=== PATIENT | female | born 1935 | race Caucasian/White ===

== ENCOUNTER → 2017-10-22 | Outpatient (CLI) | payer MEDICARE, OTHER ==
[~2017-10-22] MED LIST: ASPI-630 PO; MULT-245 PO; RIVA15TA PO; RIVA20TA2 PO; SIMV20TA PO; VIT1TABL32 PO
--- NOTE | 2017-10-22 22:28 | RAD ---
Chest radiograph 10/22/2017 4:23 PM INDICATION: Chest pain for one week COMPARISON: Chest radiograph June 07, 2007 TECHNIQUE: Frontal and lateral views of the chest are provided. FINDINGS: The cardiomediastinal silhouette is within normal limits. There are no pleural effusions. There is no pulmonary vascular congestion. There is no pneumothorax. The lungs are clear. Mild dextroconvex scoliosis of the thoracic spine. IMPRESSION: No acute cardiopulmonary process. Electronically signed by: Hien Aiken MD (10/22/2017 4:42 PM) [facility]
== END | disposition home or self-care (01) ==
LOC: RAD 16:12
PROVIDERS: ATTEND Family Medicine
DX: M41.84 Other forms of scoliosis, thoracic region (principal); I10 Essential (primary) hypertension; E11.9 Type 2 diabetes mellitus without complications
CPT/HCPCS: 71046

== ENCOUNTER → 2021-06-09 | Outpatient (CLI) | payer MEDICARE ==
--- NOTE | 2021-06-09 10:57 | RAD ---
EXAM: XR HIP_LT 2-3 VIEWS 06/09/2021 10:40 AM CLINICAL INDICATION: Left hip pain for several days, unknown injury. COMPARISON: None TECHNIQUE: AP and frog-leg lateral view of the left hip FINDINGS: There is no acute fracture. Mild left hip joint space narrowing with tiny osteophytes. The pubic symphysis is normal. There is suture material in the pelvis. IMPRESSION: No acute osseous abnormality. Mild left hip degenerative joint disease. Electronically signed by: Jacquelin Yung MD (06/09/2021 10:54 AM) [id number]
== END ==
LOC: RAD 10:25
PROVIDERS: ATTEND Specialist
DX: M16.12 Unilateral primary osteoarthritis, left hip (principal); M25.752 Osteophyte, left hip
CPT/HCPCS: 73502

== ENCOUNTER 2021-06-27 22:23 | Emergency (ER) | payer MEDICARE ==
[~2021-06-27] VITALS: Ht 167.6 cm; Wt 75.0 kg
--- NOTE | 2021-06-27 22:41 | PHYS DOC ---
Past History Past Medical History: Diabetes (JAY JAMES MD) Past Surgical History hx. colon resection (JAY JAMES MD) General Adult HPI: HPI: ".. I had a CT earlier.. Dr Wilder felt maybe I had an abscess on my hip.. it been bothering me.. She sent me back to get a CT with contrast tonight..." Patient is a 85 year old female who presents with above hx and complaints of fever, Lt abdomen and hip pain. Patient has had symptoms for several days. The pain is exacerbated by movement of the left hip. Patient does have past medical history of diabetes, hypertension, and arthritis. Pt. follows with Dr. Wilder. Pt. had CT earlier to evaluate Lt hip pain. Earlier CT showed possible abscess on left psoas. Dr. Rodriguez requested pt . return to ED and have a CT with contranst. Patient does not localize her pain in left lower quadrant. There is rebound left lower quadrant. Straight leg lift on left also legs exacerbates pain in left lower quadrant. (JAY JAMES MD) Review of Systems: Review of Systems: Constitutional: Denies fever or chills Eyes: Denies change in visual acuity HENT: Denies nasal congestion or sore throat Respiratory: Denies cough or shortness of breath Cardiovascular: Denies chest pain or edema GI: Planes of left lower quadrant abdominal pain, nausea,. Denies vomiting, bloody stools or diarrhea : Denies dysuria Musculoskeletal: Complains of left hip pain Integument: Denies rash Neurologic: Denies headache, focal weakness or sensory changes Endocrine: Denies polyuria or polydipsia Lymphatic: Denies swollen glands Psychiatric: Denies depression or anxiety (JAY JAMES MD) Family History: Family History: Noncontributory to presentation (JAY JAMES MD) Current Medications: Current Meds: See nursing for home meds (JAY JAMES MD) Allergies: Allergies: Allergies Coded Allergies Type Severity Reaction Last Updated Verified Sulfa (Sulfonamide Antibiotics) Allergy Unknown 09/22/13 No codeine Allergy Unknown 09/22/13 No (JAY JAMES MD) Physical Exam: PE: Constitutional: Moderate acute distress, non-toxic appearance. [] HENT: Normocephalic, atraumatic, bilateral external ears normal, oropharynx moist, no oral exudates, nose normal. [] Eyes: PERRLA, EOMI, conjunctiva normal, no discharge. Glasses Neck: Normal range of motion, no tenderness, supple, no stridor. [] Cardiovascular:Heart rate regular rhythm, no murmur [] PMI slightly left Lungs & Thorax: Bilateral breath sounds equal at apex auscultation [] Abdomen: Bowel sounds normal, soft, left lower abdomen tenderness, no masses, no pulsatile masses. Rebound to left lower abdomen. Positive psoas sign Skin: Warm, dry, no erythema, no rash. [] Back: No tenderness, no CVA tenderness. [] Extremities: No tenderness, no cyanosis, no clubbing, ROM intact, no edema. [] No cording appreciated. Arthritic changes. Neurologic: Alert and oriented X 3, normal motor function, normal sensory function, no focal deficits noted. [] Psychologic: Affect anxious,, judgement normal, mood normal. [] (JAY JAMES MD) EKG: EKG: My interpretation EKG shows a sinus rhythm at 72 bpm. No acute morphology time of EKG is 2348 [] (JAY JAMES MD) Radiology/Procedures: Radiology/Procedures: [][address] [address] IMAGING REPORT Signed PATIENT: ASCENCION SAENZ ACCOUNT: [id number] : 1935 LOCATION: ER AGE: 85 SEX: F EXAM STATUS: REG ER ORD. PHYSICIAN: JAY JAMES MD REASON: non -resolving headache, fever PROCEDURE: CT HEAD WO CONTRAST EXAMINATION: CT abdomen and pelvis with IV contrast. CT brain without IV contrast. INDICATION:85 years, Female, fever, abdominal pain. headache. Fever. TECHNIQUE: Axial CT images of the abdomen and pelvis were obtained. Coronal and sagittal reformatted performed. Spiral acquisition of contiguous images from the skull base to the vertex were obtained. Sagittal and coronal 2D reformatted series were provided by the technologist. Soft tissue and bone window algorithms were reviewed. COMPARISON: 06/27/2021. Exposure: One or more of the following individualized dose reduction techniques were utilized for this examination: 1. Automated exposure control 2. Adjustment of the mA and/or kV according to patient size 3. Use of iterative reconstruction technique. FINDINGS: LOWER CHEST: Trace amount of right pleural effusion, unchanged. Dependent subsegmental atelectasis. ABDOMEN/PELVIS: Liver, spleen, and biliary ducts are unremarkable. Cholecystectomy. Extrahepatic biliary ductal dilation with smooth tapering distally, likely secondary to postcholecystectomy status. Moderate to severe pancreatic parenchymal atrophy with fat infiltration. No adrenal nodule. No hydronephrosis or nephrolithiasis in either kidney. Redemonstrated complex multiloculated left iliopsoas fluid collection with rim enhancement and internal septations, measures 13.5 x 4.9 x 6.6 cm, stable in size since prior exam. Minimal adjacent fat stranding. This collection is communicating with smaller complex collection along the medial aspect which appears inseparable from the sigmoid colon measures 2.5 cm (series 3 image 28). Postsurgical changes of sigmoid resection. No bowel dilation. Moderate size hiatal hernia. Cecal bascule. Appendix is not seen. Moderate aortoiliac atherosclerotic calcifications without significant narrowing. Mesenteric arteries and portal veins are patent. No pneumoperitoneum or ascites. No lymphadenopathy in the abdomen or pelvis by size criteria. Underdistended urinary bladder which limits evaluation. Hysterectomy. MUSCULOSKELETAL STRUCTURES: No acute osseous process. Grade 1 anterolisthesis of L5 over S1. Diffuse osteopenia. Multilevel degenerative changes in the spine. CT BRAIN: Neither mass, midline shift, intracranial hemorrhage, acute/subacute ischemic changes, nor extraaxial fluid collections are seen. Moderate brain parenchymal volume loss. Supratentorial periventricular white matter hypodensities, indeterminate but most likely representing chronic microangiopathic disease. The paranasal sinuses, mastoid air cells, and middle ears are clear.The orbital contents appear within normal limits. IMPRESSION: 1. Redemonstrated 13.5 cm complex multiloculated left iliopsoas fluid collection with rim enhancement and internal septations, stable in size since prior exam. The collection is communicating with a smaller complex collection along the medial aspect which appears inseparable from the sigmoid colon me asures 2.5 cm. Differential includes bursal distention, evolving hematoma or abscess. Recommend IR consultation for drainage. 2. No acute intracranial process. Electronically signed by: Jevon Jordan MD (06/28/2021 1:19 AM) [facility] DICTATED AND SIGNED BY: JEVON JORDAN MD DATE: 06/28/21104 CC: JAY JAMES MD; FENG RODRIGUEZ MD ~MTH0 0 (JAY JAMES MD) Heart Score: C/O Chest Pain: N/A HEART Score for Chest Pain: HEART Score for Chest Pain Response (Comments) Value History Slighlty/Non-Suspicious 0 ECG Nonspecific Repolarizatio 1 Age > 65 2 Risk Factors 1 or 2 Risk Factors 1 Troponin < Normal Limit 0 Total 4 Risk Factors: Risk Factors: DM, Current or recent (<one month) smoker, HTN, HLP, family history of CAD, obesity. Risk Scores: Score 0 - 3: 2.5% MACE over next 6 weeks - Discharge Home Score 4 - 6: 20.3% MACE over next 6 weeks - Admit for Clinical Observation Score 7 - 10: 72.7% MACE over next 6 weeks - Early Invasive Strategies (JAY JAMES MD) Course & Med Decision Making: Course & Med Decision Making Pertinent Labs and Imaging studies reviewed. (See chart for details) Discussed presentation, testing and treatment plan with . Will accept pt. at [facility]- and for interventional radiology consult. Start on Zosyn pending transfer to [facility] for interventional radiology consult. Still awaiting room at [facility] at shift change . Endorsed to Dr. oLvett at shift change. Impression: 1. Lt Lower Abdomen Abscess- ( appear s to be left lower sigmoid colon area 13.5 cm iliopsoas. ) 2.Anemia Hgb- 10.3 3.Hyponatremia 129 4.DM - 156 5. Thrombocytosis 443 6. Elevated BNP 800 7. Malnutrition- Alb. 2.3 [] (JAY JAMES MD) Course & Med Decision Making Assumed care from Dr. James at 0630. Patient remained in stable condition. Notified by [facility] that they would not have an available bed today. Call to transfer center at [facility] Spoke to Dr. Goddard IR who felt that patient would not require emergent IR drainage. Still in patient's best interest to be at facility with IR capability if any change in her condition, accepted by transfer physician Dr. Montanez for admission to [facility]. Will transfer by EMS in stable condition. (CHERELLE LOVETT MD) Dragon Disclaimer: Dragon Disclaimer: This electronic medical record was generated, in whole or in part, using a voice recognition dictation system. (JAY JAMES MD) Departure Departure: Referrals: FENG RODRIGUEZ MD (PCP) Dragon Disclaimer This chart was dictated in whole or in part using Voice Recognition software in a busy, high-work load, and often noisy Emergency Department environment. It may contain unintended and wholly unrecognized errors or omissions. (JAY JAMES MD) Dragon Disclaimer This chart was dictated in whole or in part using Voice Recognition software in a busy, high-work load, and often noisy Emergency Department environment. It may contain unintended and wholly unrecognized errors or omissions. (JAY JAMES MD) JAY JAMES MD Jun 27, 2021 22:41 CHERELLE LOVETT MD Jun 28, 2021 09:45
[2021-06-27] MEDS ORDERED: IV NORMAL SALINE 1,000ML 1,000 ML IV SCH (22:45)
[2021-06-27] MEDS ORDERED: IOHEXOL 240 MG/ML 50ML VIAL. ONE (23:07)
[2021-06-27] MEDS ORDERED: CONTRAST GIVEN. MC PRN (23:30)
[2021-06-27] MEDS ORDERED: IOHEXOL 300 MG/ML 75 ML VIAL. IV ONE (23:45)
--- NOTE | 2021-06-28 00:16 | RAD ---
XR ABDOMEN COMP ACUTE History: Reason: pain / Spl. Instructions: / History: Technique: Supine and upright views of the abdomen. Comparison: None. Findings: Small right pleural effusion. No consolidation. No pneumothorax. Normal heart size. No pneumoperitone um. Mild small bowel gas. Air and stool throughout the imaged colon. Moderate distal colonic stool burden . Surgical clips right upper quadrant. Postop changes overlying the pelvis. Impression: 1. Nonobstructed bowel gas pattern. 2. Small right pleural effusion. Electronically signed by: Ferny Samuel DO (06/28/2021 12:13 AM) [facility]
--- NOTE | 2021-06-28 01:22 | RAD ---
EXAMINATION: CT abdomen and pelvis with IV contrast. CT brain without IV contrast. INDICATION:85 years, Female, fever, abdominal pain. headache. Fever. TECHNIQUE: Axial CT images of the abdomen and pelvis were obtained. Coronal and sagittal reformatted performed. Spiral acquisition of contiguous images from the skull base to the vertex were obtained. Sagittal and coronal 2D reformatted series were provided by the technologist. Soft tissue and bone wi ndow algorithms were reviewed. COMPARISON: 06/27/2021. Exposure: One or more of the following individualized dose reduction techniques were utilized for thi s examination: 1. Automated exposure control 2. Adjustment of the mA and/or kV according to patient size 3. Use of iterative reconstruction technique. FINDINGS: LOWER CHEST: Trace amount of right pleural effusion, unchanged. Dependent subsegmental atelectasis. ABDOMEN/PELVIS: Liver, spleen, and biliary ducts are unremarkable. Cholecystectomy. Extrahepatic biliary ductal dilat ion with smooth tapering distally, likely secondary to postcholecystectomy status. Moderate to severe pancreatic parenchymal atrophy with fat infiltration. No adrenal nodule. No hydronephrosis or nephro lithiasis in either kidney. Redemonstrated complex multiloculated left iliopsoas fluid collection with rim enhancement and internal control specialist al septations, measures 13.5 x 4.9 x 6.6 cm, stable in size since prior exam. Minimal adjacent fat st randing. This collection is communicating with smaller complex collection along the medial aspect whi ch appears inseparable from the sigmoid colon measures 2.5 cm (series 3 image 28). Postsurgical changes of sigmoid resection. No bowel dilation. Moderate size hiatal hernia. Cecal basc ule. Appendix is not seen. Moderate aortoiliac atherosclerotic calcifications without significant isaak rowing. Mesenteric arteries and portal veins are patent. No pneumoperitoneum or ascites. No lymphaden opathy in the abdomen or pelvis by size criteria. Underdistended urinary bladder which limits evaluat ion. Hysterectomy. MUSCULOSKELETAL STRUCTURES: No acute osseous process. Grade 1 anterolisthesis of L5 over S1. Diffuse osteopenia. Multilevel degen erative changes in the spine. CT BRAIN: Neither mass, midline shift, intracranial hemorrhage, acute/subacute ischemic changes, nor extraaxial fluid collections are seen. Moderate brain parenchymal volume loss. Supratentorial periventricular w cece matter hypodensities, indeterminate but most likely representing chronic microangiopathic diseas e. The paranasal sinuses, mastoid air cells, and middle ears are clear.The orbital contents appear withi n normal limits. IMPRESSION: 1. Redemonstrated 13.5 cm complex multiloculated left iliopsoas fluid collection with rim enhancemen t and internal septations, stable in size since prior exam. The collection is communicating with a sm aller complex collection along the medial aspect which appears inseparable from the sigmoid colon tom sures 2.5 cm. Differential includes bursal distention, evolving hematoma or abscess. Recommend IR con sultation for drainage. 2. No acute intracranial process. Electronically signed by: Aleena Jordan MD (06/28/2021 1:19 AM) [facility]
[2021-06-28 01:25] LABS: CALCIUM 8.9 mg/dL (8.5-10.1); CREATININE 0.8 mg/dL (0.6-1.0); GFR 68.5; POTASSIUM 4.7 mmol/L (3.5-5.1)
[2021-06-28 01:29] LABS: BASO # 0.1 x10^3/uL (0.0-0.2); BASO % 1 % (0-3); EOS # 0.1 x10^3/uL (0.0-0.7); EOS % 1 % (0-3); HEMATOCRIT 30.5 % (36.0-47.0); HEMOGLOBIN 10.3 g/dL (12.0-15.5); LYMPH # 1.2 x10^3/uL (1.0-4.8); LYMPH % 11 % (24-48); MEAN CORPUSCULAR HEMOGLOBIN 31 pg (25-35); MEAN CORPUSCULAR HGB CONC 34 g/dL (31-37); MEAN CORPUSCULAR VOLUME 91 fL (79-100); MONO # 1.2 x10^3/uL (0.0-1.1); MONO % 12 % (0-9); NEUT # 8.1 x10^3uL (1.8-7.7); NEUT % 76 % (31-73); PLATELET COUNT 443 x10^3/uL (140-400); RED BLOOD COUNT 3.36 x10^6/uL (3.50-5.40); RED CELL DISTRIBUTION WIDTH 13.6 % (11.5-14.5); WHITE BLOOD COUNT 10.7 x10^3/uL (4.0-11.0)
[2021-06-28 01:39] LABS: ALBUMIN 2.3 g/dL (3.4-5.0); DIRECT BILIRUBIN 0.2 mg/dL (0.0-0.2); MAGNESIUM 1.7 mg/dL (1.8-2.4); TOTAL BILIRUBIN 0.5 mg/dL (0.2-1.0); TOTAL PROTEIN 6.1 g/dL (6.4-8.2)
[2021-06-28 02:08] LABS: INFLUENZA A PATIENT NEGATIVE (NEGATIVE); INFLUENZA B PATIENT NEGATIVE (NEGATIVE)
[2021-06-28] MEDS ORDERED: PIPERACILLIN/TAZOBACTAM 4.5 GM VIAL IV ONE (03:41)
[2021-06-28] MEDS ORDERED: IV NORMAL SALINE 50ML 50 ML ONE (03:41)
[2021-06-28] MEDS ORDERED: PIPERACILLIN/TAZOBACTAM 4.5 GM in IV NORMAL SALINE 50ML 50 ML IV ONE (04:00)
--- NOTE | 2021-06-28 06:00 | EKG ---
[address] [address] Test Date: 2021-06-27 Test Time: 23:46:43 Pat Name: ASCENCION SAENZ Department: Room: Gender: F Director Group Sales: : 1935 Requested By: JAY MILLER Order Number: [id number] Reading MD: Evgeny Polo Measurements Intervals [place] Rate: 72 P: 41 UT: 180 QRS: -6 QRSD: 78 T: 49 QT: 352 QTc: 387 Interpretive Statements SINUS RHYTHM LEFTWARD AXIS Electronically Signed On 06-28-2021 18:29:26 CHANNEL PROGRAM MANAGER by Evgeny Polo
[2021-06-28 06:20] LABS: BARBITURATES NEG (NEG); BENZODIAZEPINES NEG (NEG); CANNABINOIDS NEG (NEG); COCAINE NEG (NEG); METHADONE NEG (NEG); OPIATES NEG (NEG); PHENCYCLIDINE NEG (NEG)
[2021-06-28 06:22] LABS: AMPHETAMINE/METHAMPHETAMINE NEG (NEG)
[2021-06-28 06:36] LABS: CLARITY,URINE CLEAR; COLOR,URINE YELLOW; GLUCOSE,URINE NEG (NEG)
[2021-06-28 06:37] LABS: BACTERIA,URINE 0 /HPF (0-FEW); NITRITE,URINE NEG (NEG); SQUAMOUS EPITHELIAL CELL,UR FEW /LPF; UROBILINOGEN,URINE 0.2 mg/dL (0.2 mg/dL)
[2021-06-28 09:52] VITALS: BP 151/72
== END 2021-06-28 10:42 | disposition short-term general hospital (02) ==
LOC: ER 22:23
DX: L02.211 Cutaneous abscess of abdominal wall (principal); D64.9 Anemia, unspecified; E87.1 Hypo-osmolality and hyponatremia; E11.9 Type 2 diabetes mellitus without complications; D75.839 Thrombocytosis, unspecified; R79.89 Other specified abnormal findings of blood chemistry; E46 Unspecified protein-calorie malnutrition; Z20.822 Contact with and (suspected) exposure to COVID-19; Z68.26 Body mass index [BMI] 26.0-26.9, adult; Z88.2 Allergy status to sulfonamides; Z88.5 Allergy status to narcotic agent
CPT/HCPCS: 36415; 70450; 74022; 74177; 80048; 80076; 80307; 81001; 82550; 83605; 83690; 83735; 83880; 84443; 84484; 85025; 85379; 85610; 85730; 87040; 87086; 87428; 93005; 96361; 96365; 99285; J2543; J7030; Q9967

== ENCOUNTER → 2021-06-27 | Outpatient (CLI) | payer MEDICARE ==
[2021-06-27 17:31] LABS: BASO # 0.1 x10^3/uL (0.0-0.2); BASO % 1 % (0-3); EOS # 0.2 x10^3/uL (0.0-0.7); EOS % 2 % (0-3); HEMATOCRIT 34.8 % (36.0-47.0); HEMOGLOBIN 11.8 g/dL (12.0-15.5); LYMPH # 1.1 x10^3/uL (1.0-4.8); LYMPH % 12 % (24-48); MEAN CORPUSCULAR HEMOGLOBIN 31 pg (25-35); MEAN CORPUSCULAR HGB CONC 34 g/dL (31-37); MEAN CORPUSCULAR VOLUME 91 fL (79-100); MONO % 10 % (0-9); NEUT # 7.2 x10^3uL (1.8-7.7); NEUT % 75 % (31-73); PLATELET COUNT 475 x10^3/uL (140-400); RED BLOOD COUNT 3.83 x10^6/uL (3.50-5.40); RED CELL DISTRIBUTION WIDTH 13.4 % (11.5-14.5); WHITE BLOOD COUNT 9.6 x10^3/uL (4.0-11.0)
[2021-06-27 17:41] LABS: ALBUMIN 2.4 g/dL (3.4-5.0); ALBUMIN/GLOBULIN RATIO 0.5 (1.0-1.7); CALCIUM 9.4 mg/dL (8.5-10.1); CREATININE 0.9 mg/dL (0.6-1.0); GFR 59.8; POTASSIUM 5.2 mmol/L (3.5-5.1); TOTAL BILIRUBIN 0.3 mg/dL (0.2-1.0); TOTAL PROTEIN 7.5 g/dL (6.4-8.2)
--- NOTE | 2021-06-27 17:53 | RAD ---
EXAM: CT Abdomen and Pelvis without IV contrast CLINICAL HISTORY: Reason: LLQ PAIN X 1 MONTH COMPARISON: none TECHNIQUE: Helical CT of the abdomen and pelvis without intravenous contrast. Axial, coronal and sagi ttal reformatted images were generated. PQRS compliance statement - One or more of the following individualized dose reduction techniques wer e utilized for this study: 1. Automated exposure control 2. Adjustment of the mA and/or kV according to patient size 3. Use of iterative reconstruction technique FINDINGS: Lack of intravenous contrast limits evaluation of solid organs, vasculature, and lymph nodes. Lower chest: Mitral annular calcifications are seen. No pericardial effusion. Linear opacities lung bases likely s carring/atelectasis. Small hiatal hernia. Abdomen and Pelvis: No focal liver lesion. Cholecystectomy clips are seen. No biliary ductal dilatation. Pancreas, spleen , adrenal glands are unremarkable. No focal renal lesion. No hydronephrosis. No hydroureter. Bladder is unremarkable. Moderate colonic stool content is seen. No small or large bowel dilatation. No bowel obstruction. Col onic diverticula are seen. No evidence for acute diverticulitis. Anastomosis rectosigmoid junction. The left psoas muscle is increased in size with internal low density, possibly collection, measuring 7.3 x 3.9 x 12.3 cm. Given continuity with the iliopsoas tendon distally this likely represents iliop soas bursal distention. However there is mild associated infiltration and therefore stability of the collection cannot be ascertained on this noncontrast examination. No aggressive osseous lesion is seen. Hip joint degenerative changes are seen. Degenerative changes o f the spine are seen. No aggressive osseous lesion is seen. IMPRESSION: Left psoas collection distally at the level of the external iliac arteries. This collection extends t o the distal iliopsoas tendon and may represent iliopsoas bursal distention measuring 12.3 cm. Howeve r given the associated infiltration, superimposed infection is also a consideration. This can be isael elated with patient's lab values and clinical symptoms and if clinically indicated contrast-enhanced CT or MRI would provide additional details. Electronically signed by: Puma Albarado MD (06/27/2021 5:50 PM) [facility]
== END ==
LOC: LAB 16:57
PROVIDERS: ATTEND Specialist
DX: K57.30 Diverticulosis of large intestine without perforation or abscess without bleeding (principal); K44.9 Diaphragmatic hernia without obstruction or gangrene; M47.817 Spondylosis without myelopathy or radiculopathy, lumbosacral region; I34.8 Other nonrheumatic mitral valve disorders; Z90.49 Acquired absence of other specified parts of digestive tract
CPT/HCPCS: 36415; 74176; 80053; 85025; 87040